=== PATIENT | female | born 1965 | race Caucasian/White ===

== ENCOUNTER 2017-07-18 02:39 | Day surgery (SDC) | payer OTHER ==
[2014-03-25 09:07] VITALS: Ht 170.2 cm; Wt 105.7 kg
[~2017-07-18] VITALS: Ht 170.2 cm; Wt 105.7 kg
[~2017-07-18 02:39] MED LIST: ALB6.7R INH; AMLO-104 PO; AMLO-99 PO; BUDE10.2 INH; CETI-176 PO; DEXL60CA6 PO; DOCU100C49 PO; FEXO-72 PO; GEMF600T91 PO; HYDR2TAB4 PO; IBUP800T37 PO; LEVO75TA73 PO; LEVO88TA45 PO; LORA5TAB16 PO; NAPR220C12 PO; NEBI10TA4 PO; OMEP-218 PO; ONDA4TAB PO; PER PO; PIRO-91 PO; PROM-110 PO; SIME125T56 PO; SIMV-54 PO; SULI200T84 PO; UBID1CAP94 PO; UBID30CA27 PO; VALS1TAB6 PO; VALS1TAB72 PO; VALS1TAB79 PO
[2017-07-18] MEDS ORDERED: LIDOCAINE/SOD BICARB 8.4% SYR ID ONE (10:30)
[2017-07-18] MEDS ORDERED: NORMOSOL R SOLN(*) 1000 ML BAG 1,000 ML IV PRN (10:30)
[2017-07-18] MEDS ORDERED: MIDAZOLAM 2 MG/2 ML VIAL IVP PRN (10:30)
[2017-07-18 11:45] VITALS: BP 134/87
[2017-07-18] MEDS ORDERED: PROPOFOL EMUL(*) 10MG/ML 20 ML 40 ML ONE (12:10)
[2017-07-18 12:33] VITALS: BP 113/75
[2017-07-18 12:45] VITALS: BP 115/72
[2017-07-18 13:00] VITALS: BP 124/80
[2017-07-18 13:12] VITALS: BP 124/83
[2017-07-18 13:13] VITALS: BP 142/87
[2017-07-24] MEDS ORDERED: LEVO88TA43 PO (11:23)
[2017-07-24] MEDS ORDERED: KET10 PO (11:26)
[2017-07-24] MEDS ORDERED: HYDR-385 PO (11:26)
== END 2017-07-18 13:25 | disposition home or self-care (01) ==
LOC: OR 02:39
PROVIDERS: ATTEND Internal Medicine Gastroenterology
DX: K29.70 Gastritis, unspecified, without bleeding (principal); K44.9 Diaphragmatic hernia without obstruction or gangrene; K20.9 Esophagitis, unspecified
CPT/HCPCS: 43239; 43248; 88305; 88313; 88344; J2250; J2704

== ENCOUNTER 2017-07-23 02:02 | Day surgery (SDC) | payer OTHER ==
[2014-03-25 09:07] VITALS: Ht 170.2 cm; Wt 105.2 kg
--- NOTE | 2017-07-19 17:18 | HISTORY AND PHYSICAL ---
DATE OF ADMISSION: July 23, 2017 CHIEF COMPLAINT Abdominal pain. HISTORY OF PRESENT ILLNESS This is a 51-year-old female with a history of hypertension. She has had a six month history of intermittent right upper quadrant pain with radiation through to the back. This has been increasing in frequency and intensity for the last several weeks. She has associated nausea and bloating. She has had loose bowel movements. She has had no fever. The patient underwent a CT scan of the abdomen which was negative. She underwent an ultrasound of the gallbladder which was negative. She underwent an ultrasound with stimulation which revealed borderline contractility at 39% and reproduction of her pain. She had an endoscopy by Dr. Ruffin that did not reveal a source for the pain. PAST SURGICAL HISTORY * Appendectomy. * Total Hysterectomy. ALLERGIES LATEX, PENICILLIN and SULFA. CURRENT MEDICATIONS 1. Bystolic 10 mg daily. 2. Dexilant 60 mg. 3. Famotidine 10 mg. 4. Gemfibrozil 600 mg. 5. Glucosamine 500 mg. 6. Levothyroxine 88 mcg. 7. Valsartan/hydrochlorothiazide 320/25 mg daily. REVIEW OF SYSTEMS Significant for the history of hypertension. No cardiac or pulmonary disease, diabetes. No history of deep venous thrombosis. PHYSICAL EXAMINATION GENERAL: A 51-year-old female in no acute distress. LUNGS: Clear. HEART: Regular rhythm. ABDOMEN: Soft. I cannot palpate any masses. IMPRESSION Cholecystitis. PLAN Laparoscopic cholecystectomy with intraoperative cholangiogram. We discussed the procedure, complications, recovery time. She seems to understand and wishes to proceed. CHERELLE
[~2017-07-23] VITALS: Ht 170.2 cm; Wt 105.2 kg
[2017-07-23] MEDS ORDERED: IOPAMIDOL 61% 75 ML INFUS BTL 75 ML ONE (06:20)
[2017-07-23] MEDS ORDERED: ROPIVACAINE 0.2% 20 ML VIAL ONE ×2 (06:20→08:17)
[2017-07-23] MEDS ORDERED: NORMOSOL R SOLN(*) 1000 ML BAG 1,000 ML IV PRN (06:30)
[2017-07-23] MEDS ORDERED: MIDAZOLAM 2 MG/2 ML VIAL IVP PRN (06:30)
[2017-07-23] MEDS ORDERED: LIDOCAINE/SOD BICARB 8.4% SYR ID ONE (06:30)
[2017-07-23 06:46] VITALS: BP 135/69
[2017-07-23] MEDS ORDERED: PROPOFOL EMUL(*) 10MG/ML 20 ML 20 ML ONE (07:14)
[2017-07-23] MEDS ORDERED: fentaNYL CITR 100 MCG/2 ML AMP ONE ×2 (07:14→08:40)
[2017-07-23] MEDS ORDERED: DEXAMETHASONE SOD PHOS 10MG/ML ONE (07:14)
[2017-07-23] MEDS ORDERED: ONDANSETRON 4 MG/2 ML VIAL ONE (07:14)
[2017-07-23] MEDS ORDERED: SUCCINYLCHOL CHL 200MG/10ML VL ONE (07:14)
[2017-07-23] MEDS ORDERED: LIDOCAINE MPF 1% 5 ML VIAL ONE (07:14)
[2017-07-23] MEDS ORDERED: MIDAZOLAM 2 MG/2 ML VIAL ONE (07:14)
[2017-07-23] MEDS ORDERED: KETOROLAC 30 MG/ML VIAL ONE (08:02)
[2017-07-23] MEDS ORDERED: GLYCOPYRROLATE 1 MG/5 ML INJ ONE (08:05)
[2017-07-23] MEDS ORDERED: NEOSTIG METHYLSUL 10MG/10ML VL ONE (08:05)
--- NOTE | 2017-07-23 08:17 | Post Operative Progress Note ---
Post Operative Progress Note Date: Jul 23, 2017 Time: 08:16 Surgeon: ronna Anesthesia: dr krishnan Pre-Op Diagnosis: cholecystitis Post-Op Diagnosis: same Procedure(s): lap lane with DARCI Art MD Jul 23, 2017 08:17
--- NOTE | 2017-07-23 08:19 | Short(Outpt) Discharge Summary ---
Discharge Summary Reason for Hosp/Final Diag: (1) Cholecystitis Hospital Course & Plan: lap lane with gram Departure Discharge to: Home Discharge Instructions Home Meds Active Scripts Nebivolol Hcl (BYSTOLIC) 10 Mg Tab, 1 TAB PO QDAY, #90 TAB 4 Refills Prov:AIDAN SANDOVAL MD 07/11/17 Omeprazole Magnesium (PRILOSEC OTC) 20 Mg Tablet.dr, 1 TAB PO BID for 14 Days, # 30 TAB 1 Refill Prov:AIDAN SANDOVAL MD 04/29/17 Reported Medications Levothyroxine Sodium (LEVOTHYROXINE SODIUM) 75 Mcg Tablet, 88 MCG PO QDAY, TAB 04/29/17 Gemfibrozil (GEMFIBROZIL) 600 Mg Tablet, 600 MG PO BID 04/29/17 Valsartan/Hydrochlorothiazide (DIOVAN HCT 320-25 MG TABLET) 1 Each Tablet, 1 EACH PO QDAY 01/30/17 Albuterol Sulfate (PROVENTIL HFA) Unknown Strength Inh, INH 3-4XD, INH 01/30/17 Diet: Regular Activity: As Tolerated Special Instructions: ice to incision for 48 hours remove bandage and shower to see me in one week, call [phone] for apt DARCI POOLE MD Jul 23, 2017 08:19
--- NOTE | 2017-07-23 08:25 | RADIOLOGY IMAGING REPORT ---
FACILITY: [facility] PATIENT NAME: Stephon Suarez : 1965 MR: [id number] V: [id number] EXAM DATE: ORDERING PHYSICIAN: DARCI POOLE TECHNOLOGIST: [place] [facility] [place] Stephon Suarez : 1965 Visit/Account:[id number] Date of Sevice: 07/23/2017 Exam: CHOLANGIOGRAM OPERATIVE Indication: CHOLECYSTITIS, RAD Comparison: Ultrasound 07/16/2017 Findings: Fluoroscopy was provided for intraoperative cholangiogram. Images of the visualized biliar y system shows normal filling without evidence of stricture or filling defect. Drainage into the duo denum is noted. Fluoroscopy time 10.9 seconds DOSE: DAP was 0.22404 mGy*m2. IMPRESSION: Normal IOC Report Dictated By: Nicola Garcia at 07/23/2017 8:19 AM Report E-Signed By: Nicola Garcia at 07/23/2017 8:21 AM WSN:[email or web address]
[2017-07-23] MEDS ORDERED: APAP/HYDROCODONE 325/5 TAB ONE (09:05)
[2017-07-23] MEDS ORDERED: APAP/HYDROCODONE 325/5 TAB PO PRN (09:10)
[2017-07-23] MEDS ORDERED: PROMETHAZINE 25 MG/ML 1 ML AMP ONE (09:31)
[2017-07-23 10:19] VITALS: BP 106/61
[2017-07-23 10:45] VITALS: BP 98/62
[2017-07-23 11:07] VITALS: BP 108/79
--- NOTE | 2017-07-23 11:07 | NACHTIGAL CHOLECYSTECTOMY ---
EVENT DATE: July 23, 2017 SURGEON: Lance Barnes MD ANESTHESIOLOGIST: Sebastien Reid MD ANESTHESIA: General PREOPERATIVE DIAGNOSIS Cholecystitis. POSTOPERATIVE DIAGNOSIS Cholecystitis. PROCEDURE PERFORMED Laparoscopic cholecystectomy with intraoperative cholangiogram. DESCRIPTION OF PROCEDURE The patient was placed in the supine position and given general anesthetic. Her abdomen was prepped and draped in a sterile fashion. Skin was anesthetized with 0.2% ropivacaine. A small incision was made above the umbilicus. Veress needle was inserted. The abdomen was insufflated with CO2. A 5 mm port was placed under direct vision. No bleeding was noted. We placed two 5 mm in the right subcostal region, a 10 mm in the epigastrium. Gallbladder was grasped and raised cephalad. There were adhesions to the undersurface of the gallbladder. These were taken down with electrocautery and blunt dissection. We dissected out the cystic duct, gallbladder junction, placed a clip there, opened the cystic duct, inserted Taut catheter, obtained cholangiograms, which were normal. Clip was removed. Taut catheter was removed. Cystic duct was triply clipped proximally and transected. Cystic artery was dissected out, doubly clipped proximally, once distally and transected. We then used electrocautery to dissect the gallbladder from the bed of the liver. This dissection went very nicely. We had excellent hemostasis. Gallbladder was placed in an Endo pouch, removed from the field. We inspected for bleeding; none was noted. The ports were removed under direct vision. No bleeding was noted. The skin was closed with interrupted 4-0 Maxon. Steri-Strips and an Airstrip were placed. The gallbladder was opened. There was cholesterolosis lining the gallbladder. The patient tolerated the procedure well, no complications. [facility]
[2017-07-23 11:11] VITALS: BP 116/76
[2017-07-23 11:16] VITALS: BP 108/71
[2017-07-24] MEDS ORDERED: LEVO88TA43 PO (11:23)
[2017-07-24] MEDS ORDERED: KET10 PO (11:26)
[2017-07-24] MEDS ORDERED: HYDR-385 PO (11:26)
== END 2017-07-23 09:45 | disposition home or self-care (01) ==
LOC: OR 02:02
PROVIDERS: ATTEND Surgery
DX: K81.9 Cholecystitis, unspecified (principal)
CPT/HCPCS: 47563; 74300; 88304; 94667; J0330; J1100; J1885; J2001; J2250; J2405; J2550; J2704; J2710; J2795; J3010; J3490; Q9967

== ENCOUNTER → 2017-11-11 | Outpatient (CLI) | payer OTHER ==
[2014-03-25 09:07] VITALS: BMI 37.1
[~2017-11-11] MED LIST changes: +FAMO10TA7 PO; +GLUC100026 PO; +HYDR-385 PO; +KET10 PO; +LEVO88TA43 PO
[2017-11-11 16:10] LABS: PLATELET COUNT, AUTOMATED 177 K/uL (150-450)
[2017-11-11 16:25] LABS: LDL CHOLESTEROL 120 mg/dl
== END ==
LOC: LAB 15:46
PROVIDERS: ATTEND Emergency Medicine
DX: R10.9 Unspecified abdominal pain (principal); E78.5 Hyperlipidemia, unspecified; E83.52 Hypercalcemia
CPT/HCPCS: 36415; 81001; 82040; 82247; 82310; 82374; 82435; 82465; 82565; 82947; 83718; 83970; 84075; 84132; 84155; 84295; 84450; 84460; 84478; 84520; 85025

== ENCOUNTER → 2017-11-21 | Outpatient (CLI) | payer OTHER ==
[2014-03-25 09:07] VITALS: BMI 37.1
[~2017-11-21] MED LIST changes: +ROSU10TA13 PO
--- NOTE | 2017-11-22 08:31 | RADIOLOGY IMAGING REPORT ---
FACILITY: [facility] PATIENT NAME: JOE MONZON : [id number] MR: [id number] V: [id number] EXAM DATE: ORDERING PHYSICIAN: FABIOLA LINDSEY TECHNOLOGIST: Leah Braswell PROCEDURE:BILATERAL DIGITAL SCREENING MAMMOGRAM WITH CAD ASSISTED INTERPRETATION & 3D TOMOSYNTHESIS COMPARISON:Prior mammograms 02/22/16. INDICATIONS:Screening FINDINGS: A small amount of fibroglandular tissue is seen throughout the breasts. The parenchymal pattern has remained stable allowing for difference in mammographic technique & patient positioning. There is no evidence of malignant appearing mass, malignant appearing calcifications or other secondary sign of malignancy in either breast. DIAGNOSTIC CATEGORY 1--NEGATIVE. RECOMMENDATIONS: ROUTINE MAMMOGRAM AND CLINICAL EVALUATION. IMPRESSION: BIRADS 1: Negative No significant abnormality is seen. Dictated by: Mel Barkley M.D. on 11/21/2017 at 17:00 Transcribed by: YESSENIA on 11/22/2017 at 8:08 Approved by: Mel Barkley M.D. on 11/22/2017 at 8:30 [facility]
== END ==
LOC: MAMO 01:33
PROVIDERS: ATTEND Emergency Medicine
DX: Z12.31 Encounter for screening mammogram for malignant neoplasm of breast (principal)
CPT/HCPCS: 77063; 77067

== ENCOUNTER → 2017-11-26 | Outpatient (CLI) | payer OTHER ==
[2014-03-25 09:07] VITALS: BMI 37.1
--- NOTE | 2017-11-26 16:43 | RADIOLOGY IMAGING REPORT ---
FACILITY: [facility] PATIENT NAME: Stephon Suarez : 1965 MR: [id number] V: [id number] EXAM DATE: ORDERING PHYSICIAN: FABIOLA LINDSEY TECHNOLOGIST: Location: [facility] - [place] Patient: Stephon Suarez : 1965 Visit/Account:[id number] Date of Sevice: 11/26/2017 DEXA Scan Clinical history: Primary hyperparathyroidism. Comparison: None available. LUMBAR SPINE: The bone mineral density (BMD) measured from L1-L4 correlates with a Z-score 0.2 and a T-score of 0.7 which is Normal as defined by the World Health Organization. The corresponding risk of fracture in the lumbar spine is Not increased compared with a young adult reference population. HIP: Bone mineral density (BMD) measured in the Left total hip region correlates with a Z-score by 0.9 and a T-score of by 0.6 which is Normal as defined by the World Health Organization. The corresponding risk of fracture in the hip is 1-2 times increased compared with a young adult reference population. T score left femoral neck -1.6 Bone mineral density (BMD) measured in the Femoral Neck region measures 0.818 g/cm2. Impression: 1. Lumbar spine: Normal. 2. Left Hip: Normal. 3. Femoral Neck: Bone Mineral Density is 0.818 g/cm2 The next DEXA scan of this patient should include the following sites: L1-L4 and the left hip. FRAX? WHO Fracture Risk Assessment Tool link: <http://www.shef.ac.uk/FRAX/tool.jsp?locationValue=9> PLEASE NOTE: 1) The World Health Organization defines low BMD as follows: T-score Normal > -1 Osteopenia < -1 and > -2.5 Osteoporosis < -2.5 without fractures Established osteoporosis < -2.5 with fractures 2) In general, you may wish to consider: Diagnosis Treatment Follow-up DEXA Normal BMD Prevention 2-3 years Osteopenia Prevention/therapy 1-2 years Osteoporosis Therapy Yearly 3) Fracture risk estimated from the T-score is more accurate for vertebral fractures (often spontane ous) than for hip fractures. Report Dictated By: Mel Barkley MD at 11/26/2017 4:37 PM Report E-Signed By: Mel Barkley MD at 11/26/2017 4:38 PM WSN:[email or web address]
== END ==
LOC: RAD 02:08
PROVIDERS: ATTEND Emergency Medicine
DX: E21.0 Primary hyperparathyroidism (principal)
CPT/HCPCS: 77080

== ENCOUNTER → 2017-12-19 | Outpatient (CLI) | payer OTHER ==
[2014-03-25 09:07] VITALS: BMI 37.1
== END ==
LOC: LAB 16:53
PROVIDERS: ATTEND Emergency Medicine
DX: R94.5 Abnormal results of liver function studies (principal)
CPT/HCPCS: 36415; 82306; 83516; 83540; 83550; 84160; 84165; 86706; 86707; 86803; 87340; 87350

== ENCOUNTER → 2018-01-14 | Outpatient (CLI) | payer OTHER ==
[2014-03-25 09:07] VITALS: BMI 37.1
[~2018-01-14] MED LIST changes: +MONT10TA PO
== END ==
LOC: RESP 01:56
PROVIDERS: ATTEND Emergency Medicine
DX: G47.33 Obstructive sleep apnea (adult) (pediatric) (principal)

== ENCOUNTER → 2018-03-13 | Outpatient (CLI) | payer OTHER ==
[2014-03-25 09:07] VITALS: BMI 37.1
[~2018-03-13] MED LIST changes: +CORED OT; -GEMF600T91 PO; +GEMF600T92 PO; +LOSA-57 PO; -ROSU10TA13 PO; +ROSU10TA5 PO; +VALS1TAB75 PO
[2018-03-13 16:27] LABS: PLATELET COUNT, AUTOMATED 189 K/uL (150-450)
== END ==
LOC: LAB 16:11
PROVIDERS: ATTEND Emergency Medicine
DX: I10 Essential (primary) hypertension (principal); D75.1 Secondary polycythemia
CPT/HCPCS: 36415; 82310; 82374; 82435; 82565; 82947; 84132; 84295; 84520; 85025

== ENCOUNTER → 2018-04-02 | Outpatient (CLI) | payer OTHER ==
[2014-03-25 09:07] VITALS: BMI 37.1
[~2018-04-02] MED LIST changes: +AMLO-113 PO; -AMLO-99 PO
== END ==
LOC: LAB 15:59
PROVIDERS: ATTEND Emergency Medicine
DX: E83.52 Hypercalcemia (principal)
CPT/HCPCS: 36415; 82306; 82310; 83970

== ENCOUNTER → 2018-06-30 | Outpatient (CLI) | payer OTHER ==
[2014-03-25 09:07] VITALS: BMI 37.1
[~2018-06-30] MED LIST changes: -GEMF600T92 PO; +GEMF600T96 PO
== END ==
LOC: LAB 12:45
PROVIDERS: ATTEND Emergency Medicine
DX: E55.9 Vitamin D deficiency, unspecified (principal)
CPT/HCPCS: 36415; 82306; 82310; 83970

== ENCOUNTER → 2018-09-29 | Outpatient (CLI) | payer OTHER ==
[2014-03-25 09:07] VITALS: BMI 37.1
[~2018-09-29] MED LIST changes: -AMLO-113 PO; +AMLO-127 PO; +LEVO-3 PO
== END ==
LOC: LAB 16:40
PROVIDERS: ATTEND Emergency Medicine
DX: E03.9 Hypothyroidism, unspecified (principal)
CPT/HCPCS: 36415; 84443

== ENCOUNTER → 2018-10-20 | Outpatient (CLI) | payer OTHER ==
[2014-03-25 09:07] VITALS: BMI 37.1
== END ==
LOC: LAB 16:42
PROVIDERS: ATTEND Emergency Medicine
DX: E03.9 Hypothyroidism, unspecified (principal)
CPT/HCPCS: 36415; 84443

== ENCOUNTER → 2018-11-06 | Outpatient (CLI) | payer OTHER ==
[2014-03-25 09:07] VITALS: BMI 37.1
== END ==
LOC: LAB 14:48
PROVIDERS: ATTEND Emergency Medicine
DX: E03.9 Hypothyroidism, unspecified (principal); J02.9 Acute pharyngitis, unspecified
CPT/HCPCS: 87081

== ENCOUNTER → 2018-12-03 | Outpatient (CLI) | payer OTHER ==
[2014-03-25 09:07] VITALS: BMI 37.1
[~2018-12-03] MED LIST changes: +LEV112 PO
== END ==
LOC: LAB 16:42
PROVIDERS: ATTEND Emergency Medicine
DX: E03.9 Hypothyroidism, unspecified (principal)
CPT/HCPCS: 36415; 84443

== ENCOUNTER → 2018-12-18 | Outpatient (CLI) | payer OTHER ==
[2014-03-25 09:07] VITALS: BMI 37.1
[~2018-12-18] MED LIST changes: +ACET500T68 PO; +CHOL500045 PO; +DIPH-618 PO; +MENT118G; +OMEP40CA48 PO; +PRED-1 PO
[2018-12-18 11:09] LABS: PLATELET COUNT, AUTOMATED 189 K/uL (150-450)
== END ==
LOC: LAB 10:42
PROVIDERS: ATTEND Emergency Medicine
DX: E03.9 Hypothyroidism, unspecified (principal); L50.9 Urticaria, unspecified
CPT/HCPCS: 36415; 82040; 82247; 82310; 82374; 82435; 82565; 82784; 82947; 83516; 83520; 84075; 84132; 84155; 84295; 84443; 84450; 84460; 84520; 85025; 86038; 86140; 86160

== ENCOUNTER → 2019-01-05 | Outpatient (CLI) | payer OTHER ==
[2014-03-25 09:07] VITALS: BMI 37.1
== END ==
LOC: LAB 16:44
PROVIDERS: ATTEND Emergency Medicine
DX: D80.2 Selective deficiency of immunoglobulin A [IgA] (principal)
CPT/HCPCS: 36415; 82784

== ENCOUNTER → 2019-01-26 | Outpatient (CLI) | payer OTHER ==
[2014-03-25 09:07] VITALS: BMI 37.1
[~2019-01-26] MED LIST changes: +LEV125 PO; +LEVO125T77 PO
== END ==
LOC: LAB 13:13
PROVIDERS: ATTEND Emergency Medicine
DX: E03.9 Hypothyroidism, unspecified (principal)
CPT/HCPCS: 36415; 84443

== ENCOUNTER → 2019-02-17 | Outpatient (CLI) | payer OTHER ==
[2014-03-25 09:07] VITALS: BMI 37.1
--- NOTE | 2019-02-18 09:54 | RADIOLOGY IMAGING REPORT ---
FACILITY: [facility] - [place] PATIENT NAME: JOE MONZON : [id number] MR: [id number] V: [id number] EXAM DATE: [id number] ORDERING PHYSICIAN: FABIOLA LINDSEY TECHNOLOGIST: Yris Leblanc PROCEDURE: BILATERAL DIGITAL SCREENING MAMMOGRAM WITH CAD ASSISTED INTERPRETATION & 3D TOMOSYNTHESIS REASON FOR STUDY: Screening. COMPARISON: 11/21/17, 02/22/16. VIEWS OBTAINED: 2D & 3D full field CC & MLO projections BREAST DENSITY: The breast parenchyma is mostly fatty replaced. MAMMOGRAM FINDINGS: There are no mammographic findings concerning for malignancy. No significant interval change. IMPRESSION: BIRADS 1: Negative. DIAGNOSTIC CATEGORY 1--NEGATIVE. RECOMMENDATIONS: ROUTINE MAMMOGRAM AND CLINICAL EVALUATION IN 1YR. Dictated by: Ochoa Valdez on 02/17/2019 at 15:41 Transcribed by: YESSENIA on 02/18/2019 at 9:34 Approved by: Mel Barkley M.D. on 02/18/2019 at 9:49 [facility]
== END ==
LOC: MAMO 00:47
PROVIDERS: ATTEND Emergency Medicine
DX: Z12.31 Encounter for screening mammogram for malignant neoplasm of breast (principal)
CPT/HCPCS: 77063; 77067